=== PATIENT | male | born 1960 | race Caucasian/White ===

== ENCOUNTER 2025-04-10 06:14 | Day surgery (SDC) | payer MEDICARE, BC, SELFPAY ==
[2025-04-10] VITALS (12 sets, daily range): BP systolic 132–165; BP diastolic 60–116; PULSE 57–71; RESP 16; TEMP 36.2–36.7; O2SAT 97–100; BMI 35.9
[2025-04-10] MEDS: LIDOCAINE 1%-EPI 1:100,000 20 ML INFILTRATI (06:50)
[2025-04-10] MEDS: BUPIVACAINE 0.5% 30 ML INJECTION (06:50)
[2025-04-10] MEDS: ETHYL CHLORIDE 1 APPLICATION 1 APPLIC TOPICAL (07:50)
--- NOTE | 2025-04-10 08:44 | P.ORPRC_ITS ---
Procedure Note Date of procedure: 04/10/25 Procedure: PREOPERATIVE DIAGNOSIS: 1. Right carpal tunnel syndrome POSTOPERATIVE DIAGNOSIS: 1. Right carpal tunnel syndrome PROCEDURE: 1. Right open carpal tunnel release SURGEON: Chema Bowles MD. SUPERVISOR OPENING AND PICKING: MALINAD Abbott ANESTHESIA: Local anesthetic (50:50 mixture of 1% lidocaine with epi and 0.5% marcaine plain) - 10ml total IMPLANTS: None EBL: 2 mL TOURNIQUET: None COMPLICATIONS: None evident INDICATIONS: The patient is a pleasant 64yo Male who has experienced right hand numbess/tingling affecting the radial 3.5 digits for multiple months. It has progressively gotten worse. Nonoperative management has been tried and failed, and therefore surgery was recommended. DESCRIPTION OF PROCEDURE: Following a thorough discussion of risks, benefits, and alternatives consent was obtained and the operative extremity was marked. The patient was brought to the operating room and placed supine on the operating table. Local anesthesia induction was undertaken in preop holding. No antibiotics were administered as this was planned to be a local case only. Proper time-out was performed identifying proper patient, site, and procedure. The operative extremity was prepped and draped in the appropriate sterile fas hion using ChloraPrep. A transverse incision was made at the volar distal wrist crease. Sharp incision through skin and blunt dissection through the subcutaneous tissue allowed identification of the deeper fascia. This was bluntly divided and retracted. To sequentially enlarging dilators were then passed followed by the endoscopic carpal tunnel device. Subpar visualization of the transverse carpal ligament was obtained. The knife blade was passed down to Holloway's cardinal line to the distal extent of the TCL. The blade was elevated under direct visualization but I did not have confidence in knowing that the entire transverse carpal ligament was being divided. Even after multiple times to improve the visualization, it was felt to be inadequate. Therefore, we converted to an open carpal tunnel release An incision was made in line with the radial border of the ring finger beginning 1 cm distal to the distal wrist crease and progressing for another 2.5cm distal. Caution was taken to stay proximal to Holloway's cardinal line. Sharp incision through the skin, subcutaneous tissue, and palmar fascia was performed. The thenar musculature was bluntly elevated off the transverse carpal ligament. The ligament was directly visualized, and divided sharply with a 15 blade. This was released from its most proximal to the most distal extent. Metzenbaum scissor was also utilized to release the fascia extension proximally. We confirmed complete release of the transverse carpal ligament. At this stage we also chose to put our dilator in from the endoscopic direction to evaluate our alignment, and depth, and access the transverse carpal ligament and indeed we were in the proper location. Everything was in the proper spot, but again the visualization to the end scopic portion was in adequate thus the conversion to the open carpal tunnel release. Closure was performed with 4-O nylon in interrupted fashion. Soft dressings were applied, and the patient was transferred to the recovery room in stable condition. PLAN: 1. Encourage elevation of the operative extremity. 2. Range of motion of the fingers and hand/wrist as tolerated. 3. Ibuprofen/acetaminophen and/or oxycodone as needed for pain control. 4. Follow up with PA visit or nurse visit in 12-16 days for wound check and suture removal. Insert right and scopic carpal tunnel release
== END 2025-04-10 09:25 | disposition home or self-care (01) ==
PROVIDERS: Visit Provider Orthopaedic Surgery Sports Medicine
PROC: 01N54ZZ Release Median Nerve, Percutaneous Endoscopic Approach (ICD-10-PCS; CPT 29848; principal; 2025-04-10 07:45)
DX: G56.01 Carpal tunnel syndrome, right upper limb (principal)
CPT/HCPCS: 64721; J0665